=== PATIENT | male | born 1995 | race Caucasian/White ===

== ENCOUNTER 2020-08-12 14:17 | Emergency (ER) | payer OTHER ==
[2020-08-12 14:38] VITALS: BP 123/86; PULSE 105; BMI 38.0
[2020-08-12 14:46] VITALS: TEMP 98.1
[2020-08-12] MEDS ORDERED: ACETAMINOPHEN 500 MG TABLET (FP) PO ONE (15:19)
[2020-08-12] MEDS ORDERED: METHOCARBAMOL 500 MG TABLET PO ONE (15:19)
[2020-08-12] MEDS ORDERED: METHOCARBAMOL 500 MG TABLET ONE (15:21)
[2020-08-12] MEDS ORDERED: ACETAMINOPHEN 500 MG TABLET (FP) ONE (15:21)
== END 2020-08-12 17:18 | disposition home or self-care (01) ==
LOC: JERFT 14:17
DX: S00.83XA Contusion of other part of head, initial encounter (principal); S02.2XXA Fracture of nasal bones, initial encounter for closed fracture
CPT/HCPCS: 70486-TC; 72125-TC; 99285-25